=== PATIENT | female | born 1975 | race African-American/Black ===

== ENCOUNTER 2017-08-06 15:55 | Emergency (ER) | payer OTHER, SELFPAY ==
[2017-08-06 16:47] LABS: Hemoglobin 13.4 g/dL (12.0-16.0); Mean Corpuscular Hemoglobin 33.4 pg (27.0-31.0); Mean Corpuscular Volume 98.4 fl (81.0-99.0); Mean Platelet Volume 5.6 fL (7.4-10.4); Platelet Count 301 thou/uL (130-400); RBC Distribution Width 11.6 % (11.5-14.5); Red Blood Cell (RBC) Count 4.02 mill/uL (4.20-5.40); White Blood Cell (WBC) Count 4.6 thou/uL (4.8-10.8)
[2017-08-06 16:53] LABS: INR-International Normal Ratio 1.1; PTT 25.6 SEC (22.9-36.1); Prothrombin Time 13.9 SEC (12.0-14.7)
[2017-08-06 17:01] LABS: Eosinophils 1 % (0-10); Lymphocytes 68 % (21-51); MDiff Complete? YES; Monocytes 3 % (0-10); Neutrophil 27 % (42-75); PLT Morphology Comment Appears Adequate; RBC Morphology Normal; Reactive Lymphocytes 1 % (0-10)
[2017-08-06 17:16] LABS: ALT (SGPT) 15 U/L (8-55); AST (SGOT) 12 U/L (5-34); Albumin 3.7 g/dL (3.5-5.0); Alkaline Phosphatase 56 U/L (40-150); Anion Gap 13 mmol/L (10-20); BUN (Urea Nitrogen) 10 mg/dL (7.0-18.7); Bilirubin, Total 0.4 mg/dL (0.2-1.2); Calc. Creatinine Clearance 0 mL/min (70-130); Calcium 9.1 mg/dL (7.8-10.44); Carbon Dioxide 21 mmol/L (22-29); Chloride 108 mmol/L (98-107); Estimated GFR-MDRD Greater than 90; Glucose 162 mg/dL (70-105); Potassium 3.7 mmol/L (3.5-5.1); Protein, Total 6.7 g/dL (6.0-8.3); Sodium 138 mmol/L (136-145)
--- NOTE | 2017-08-06 17:47 | ULT ---
RIGHT LOWER EXTREMITY VENOUS ULTRASOUND: History: Right lower extremity pain. Technique: Grayscale, color doppler and spectral doppler imaging of the deep venous system of the rig ht lower extremity was performed. FINDINGS: There is good flow, compression, and augmentation of the common femoral, femoral, deep femoral, popli teal, posterior tibial, and greater saphenous veins. IMPRESSION: No evidence of DVT in the right lower extremity. POS: [facility]
== END 2017-08-06 18:05 | disposition home or self-care (01) ==
LOC: ERS 15:55
DX: M79.651 Pain in right thigh (principal); I10 Essential (primary) hypertension; F17.210 Nicotine dependence, cigarettes, uncomplicated; Z86.718 Personal history of other venous thrombosis and embolism
CPT/HCPCS: 36415; 80053; 85025; 85610; 85730